=== PATIENT | female | born 1985 | race Caucasian/White ===

== ENCOUNTER → 2023-02-19 06:59 | Outpatient (CLI) | payer BC, SELFPAY ==
[2023-02-19 16:40] LABS: Alanine Aminotransferase 22 U/L (12-78); Albumin Level 4.4 g/dl (3.5-5.0); Albumin/Globulin Ratio 1.2 (1.1-1.8); Alkaline Phosphatase 146 U/L (38-126); Anion Gap 15.8 mEq/L (5-15); Aspartate Amino Transferase 31 U/L (14-36); Bilirubin,Total 0.4 mg/dl (0.2-1.3); Blood Urea Nitrogen 7 mg/dl (7-17); Calcium 9.3 mg/dl (8.4-10.2); Carbon Dioxide 27 mmol/L (22.0-30.0); Chloride 101 mmol/L (98-107); Chol/HDL Ratio 4.2 (1-3.5); Cholesterol 220 mg/dl (140-200); Estimated Glomerular Filt Rate 93 ml/min (>60); GFR (African American) 113 ML/MIN (>60); Globulin 3.7 g/dL (1.3-3.2); Glucose 81 mg/dl (74-100); HDL Cholesterol 53 mg/dl (40-60); Potassium 4.8 mmoL/L (3.5-5.1); Sodium 139 mmol/L (136-145); Total Protein,Serum 8.1 g/dl (6.3-8.2); Triglycerides 109 mg/dl (30-150); VLDL Cholesterol 22 mg/dL (0-40)
[2023-02-19 16:43] LABS: Basophils # 0.1 K/mm3 (0-0.2); Basophils % 0.7 % (0.1-2.0); Eosinophils # 0.3 K/mm3 (0.0-0.4); Eosinophils % 2.6 % (0.1-12.0); Hematocrit 45.2 % (37.0-47.0); Hemoglobin 14.2 g/dL (12.2-16.2); Lymphocytes # 2.3 K/mm3 (0.7-4.5); Mean Corpuscular HGB Conc 31.5 g/dL (31.8-35.4); Mean Corpuscular Hemoglobin 28.9 pg (27.0-31.2); Mean Corpuscular Volume 91.9 fl (81-99); Mean Platelet Volume 9.9 fl (7.4-10.4); Monocytes # 0.7 K/mm3 (0.1-1.0); Monocytes % 6.5 % (1.7-9.3); Neutrophils % 68.3 % (37.0-80.0); Platelet Count 235 K/mm3 (142-424); Red Blood Count 4.91 M/mm3 (4.20-5.40); White Blood Count 10.3 K/mm3 (4.8-10.8)
[2023-02-19 17:08] LABS: Hemoglobin A1C 5.5 % (4.0-6.0)
[2023-02-19 17:11] LABS: Thyroid Stimulating Hormone 2.15 uIU/mL (0.465-4.68)
== END ==
PROVIDERS: PCP Nurse Practitioner Family; Visit Provider Nurse Practitioner Family
DX: Z00.00 Encounter for general adult medical examination without abnormal findings (principal); Z79.899 Other long term (current) drug therapy
CPT/HCPCS: 80053; 80061; 83036; 84443; 85025

== ENCOUNTER 2023-06-23 13:31 | Outpatient (CLI) | payer BC, SELFPAY ==
--- NOTE | 2023-06-23 13:31 | MM_ITS ---
PROCEDURE INFORMATION: Exam: US Right Breast, Complete MG Bilateral Diagnostic Breast Tomosynthesis Exam date and time: 06/23/2023 1:19 PM Age: 38 years old Clinical indication: Due for baseline screening mammogram. Patient reports a right breast palpable lump; Mass, lump, or swelling; Prior surgery; Surgery date: 6+ months; Surgery type: Implants; Additional info: Lump in right breast TECHNIQUE: Imaging protocol: Complete ultrasound of all four quadrants of the right breast and the retroareolar regions, including ultrasound of the axilla when performed. Bilateral Diagnostic tomosynthesis and 2D mammography including computer-aided detection (CAD) when performed. Unilateral or bilateral exam. COMPARISON: No relevant prior studies available. FINDINGS: MAMMOGRAPHY: The breast is heterogeneously dense, which may obscure small masses. Subpectoral saline augmentation implants are present. No mass, architectural distortion, or suspicious calcifications have developed to suggest malignancy. No axillary adenopathy. ULTRASOUND: Ultrasound assessment all 4 quadrants and retroareolar right breast as well as right axilla Morphologically similar appearing heterogeneously hypoechoic masses demonstrate horizontal orientation without posterior shadowing . These may reflect benign fibroadenoma or complicated cysts as follows: 0.7 x 0.8 x 0.3 cm 10 o'clock right breast 4 cm from the nipple (palpable) 0.4 x 0.3 x 0.4 cm right 11 o'clock 3 cm from the nipple 1.1 x 1.0 x 0.4 cm right 10 o'clock 2 cm from the nipple 0.8 x 0.4 x 0.8 cm 3 o'clock periareolar right No dominant or morphologically suspicious mass No architectural distortion or shadowing IMPRESSION: Ultrasound-guided biopsy is recommended to definitively characterize a 0.8 cm right 10 o'clock palpable breast mass There are a total of 4 (including the palpable mass) morphologically similar appearing heterogeneously hypoechoic masses throughout the right breast. These demonstrate features suggestive of benign fibroadenoma or complicated cyst. As a precaution, six-month follow-up targeted ultrasound surveillance is warranted to assure stability presuming negative biopsy of the palpable mass ASSESSMENT: BI-RADS category 4: Suspicious
== END 2023-06-23 23:59 ==
LOC: RAD 13:31
PROVIDERS: PCP Nurse Practitioner Family; Visit Provider Nurse Practitioner Family
DX: N63.10 Unspecified lump in the right breast, unspecified quadrant (principal); Z12.31 Encounter for screening mammogram for malignant neoplasm of breast
CPT/HCPCS: 76641; 77062; 77066; G0279

== ENCOUNTER 2023-06-30 08:56 | Outpatient (CLI) | payer BC, SELFPAY ==
--- NOTE | 2023-06-30 08:57 | US_ITS ---
FINAL REPORT CLINICAL HISTORY: rt breast nodule 1000 4 cmfn -- DR. LARA GARCIA FINDINGS: ULTRASOUND-GUIDED RIGHT BREAST CORE BIOPSY TECHNIQUE: Limited images were obtained to localize region of interest. The right breast was prepped in a routine sterile fashion and locally anesthetized with 1% lidocaine. Standard written informed consent was obtained. An 11-gauge vacuum assisted hand-held device was initially planned for biopsy. The needle was positioned posterior to the lesion. However there was equipment malfunction after positioning the needle appropriately. The biopsy apparatus would not activate. Different biopsy needles were then utilized. An 18-gauge bio [place] needle was in positioned along the lateral periphery of the nodule. 4 separate core samples were obtained. A separate 18-gauge core needle with plunger was utilized. 2 separate core samples were obtained with this needle. A biopsy marker clip was deployed within the right lateral periphery of the lesion.. Postbiopsy mammogram showed postbiopsy changes with clip in the upper outer quadrant. The lesion was not evident mammographically on pre-biopsy imaging. Procedure was well tolerated . CONCLUSION: 1. Technically successful ultrasound guided core biopsy of right breast lesion as above. 2. Biopsy marker clip deployed Authenticated and ERN
--- NOTE | 2023-06-30 09:02 | MM_ITS ---
FINAL REPORT CLINICAL HISTORY: post bx, right breast biopsy FINDINGS: MAMMOGRAM RIGHT TECHNIQUE: Standard digital 2-D views COMPARISON: Diagnostic mammogram 06/23/2023 DENSITY: There are scattered areas of fibroglandular density FINDINGS: Post biopsy marker clip is noted to be in satisfactory position in the upper outer quadrant near denser glandular tissue.. Lesion was only evident sonographically, not evident on the prebiopsy mammogram. Postbiopsy changes are noted. IMPRESSION: Biopsy marker clip in upper outer quadrant near biopsy site RECOMMENDATION: Pending histopathology evaluation Authenticated and ERN
== END 2023-06-30 23:59 ==
LOC: RAD 08:57
PROVIDERS: PCP Nurse Practitioner Family; Visit Provider Family Medicine
DX: N63.11 Unspecified lump in the right breast, upper outer quadrant (principal)
CPT/HCPCS: 19083; 77065

== ENCOUNTER 2023-11-16 09:28 | Outpatient (CLI) | payer BC, SELFPAY ==
[2023-11-16 16:31] LABS: Basophils # 0.1 K/mm3 (0-0.2); Basophils % 0.8 % (0.1-2.0); Eosinophils # 0.3 K/mm3 (0.0-0.4); Eosinophils % 3.6 % (0.1-12.0); Hematocrit 41.8 % (37.0-47.0); Hemoglobin 13.8 g/dL (12.2-16.2); Lymphocytes # 2.5 K/mm3 (0.7-4.5); Lymphocytes % 31.9 % (10-50); Mean Corpuscular HGB Conc 33.1 g/dL (31.8-35.4); Mean Corpuscular Hemoglobin 30.2 pg (27.0-31.2); Mean Corpuscular Volume 91.4 fl (81-99); Mean Platelet Volume 10.1 fl (7.4-10.4); Monocytes # 0.5 K/mm3 (0.1-1.0); Monocytes % 6.1 % (1.7-9.3); Neutrophils # 4.5 K/mm3 (1.8-7.8); Neutrophils % 57.6 % (37.0-80.0); Platelet Count 227 K/mm3 (142-424); Red Blood Count 4.57 M/mm3 (4.20-5.40); Red Cell Distribution Width 14.4 % (11.5-17.5); White Blood Count 7.8 K/mm3 (4.8-10.8)
[2023-11-16 17:02] LABS: Hemoglobin A1C 5.6 % (4.0-6.0)
[2023-11-16 17:24] LABS: Chloride 106 mmol/L (98-107)
[2023-11-16 17:25] LABS: Sodium 136 mmol/L (136-145)
[2023-11-16 17:27] LABS: Alanine Aminotransferase 16 U/L (12-78); Alkaline Phosphatase 98 U/L (38-126); Aspartate Amino Transferase 28 U/L (14-36); Bilirubin,Total 0.5 mg/dl (0.2-1.3); Blood Urea Nitrogen 7 mg/dl (7-17); Estimated Glomerular Filt Rate 79 ml/min (>60); GFR (African American) 96 ML/MIN (>60)
[2023-11-16 17:28] LABS: Albumin Level 4.1 g/dl (3.5-5.0); Albumin/Globulin Ratio 1.4 (1.1-1.8); Calcium 9.5 mg/dl (8.4-10.2); Carbon Dioxide 24 mmol/L (22.0-30.0); Cholesterol 199 mg/dl (140-200); Glucose 94 mg/dl (74-100); Total Protein,Serum 7.1 g/dl (6.3-8.2); Triglycerides 74 mg/dl (30-150); VLDL Cholesterol 15 mg/dL (0-40)
[2023-11-16 17:34] LABS: HDL Cholesterol 50 mg/dl (40-60)
[2023-11-16 17:39] LABS: Direct LDL Cholesterol 118.25 mg/dL (100-129)
== END 2023-11-16 23:59 | disposition home or self-care (01) ==
LOC: LAB.DROPOF 11-17 09:29
PROVIDERS: PCP Nurse Practitioner Family; Visit Provider Nurse Practitioner Family
DX: Z00.00 Encounter for general adult medical examination without abnormal findings (principal); F41.9 Anxiety disorder, unspecified
CPT/HCPCS: 80050; 80053; 80061; 83036; 84443; 85025

== ENCOUNTER 2024-03-06 14:26 | Outpatient (CLI) | payer BC, SELFPAY ==
--- NOTE | 2024-03-06 14:26 | US_ITS ---
PROCEDURE INFORMATION: Exam: US Right Breast, Complete Exam date and time: 03/06/2024 2:49 PM Age: 38 years old Clinical indication: History of ultrasound-guided biopsy 06/30/2023 a 10 o'clock right breast mass for stromal fibrosis. Additional morphologically similar appearing areas throughout the breast were noted on 06/23/2023, for which short-term follow-up was recommended TECHNIQUE: Imaging protocol: Complete ultrasound of all four quadrants of the right breast and the retroareolar regions, including ultrasound of the axilla when performed. COMPARISON: US BIOPSY BREAST RT 06/30/2023 9:08 AM FINDINGS: ULTRASOUND: Breast ultrasound findings: Hypoechoic/anechoic masses with posterior acoustic enhancement throughout the right breast are present as follows: 0.3 cm 5 cm from the nipple 1.3 x 1.1 x 0.3 cm right 10 o'clock 2 cm from the nipple, previously 1.1 x 1.00.4 cm 0.6 x 0.3 x 0.6 cm right 10 o'clock 4 cm from the nipple (previously 0 point 8 x 0 point 3 x 0.7 cm 0.9 x 0.9 x 0.4 cm 3 o'clock retroareolar, previously 0.8 x 0.4 x 0.8 cm No dominant are morphologically suspicious mass No axillary adenopathy IMPRESSION: Probably benign. Six-month follow-up targeted ultrasound is recommended to assess stability of a 3 o'clock retroareolar heterogeneously hypoechoic 0.9 x 0.9 x 0.4 cm mass which measured 0.8 x 0.8 x 0.4 cm 06/23/2023 ASSESSMENT: BI-RADS category 3: Probably benign
== END 2024-03-06 23:59 | disposition home or self-care (01) ==
LOC: RAD 14:26
PROVIDERS: PCP Nurse Practitioner Family; Visit Provider Nurse Practitioner Family
DX: R92.8 Other abnormal and inconclusive findings on diagnostic imaging of breast (principal)
CPT/HCPCS: 76641

== ENCOUNTER 2024-10-19 08:22 | Outpatient (CLI) | payer BC, SELFPAY ==
[2024-10-19 16:52] LABS: Basophils # 0.1 K/mm3 (0-0.2); Basophils % 0.8 % (0.1-2.0); Eosinophils # 0.2 Kmm3 (0.0-0.4); Eosinophils % 2.4 % (0.1-12.0); Hematocrit 40.3 % (37.0-47.0); Hemoglobin 13.3 g/dL (12.2-16.2); Immature Granulocytes # 0.02 10^3uL; Immature Granulocytes % 0.3 %; Lymphocytes # 1.8 K/mm3 (0.7-4.5); Lymphocytes % 28.1 % (10-50); Mean Corpuscular Hemoglobin 30.1 pg (27.0-31.2); Mean Corpuscular Volume 91.2 fl (81-99); Mean Platelet Volume 11.4 fl (7.4-10.4); Monocytes # 0.6 K/mm3 (0.1-1.0); Monocytes % 9.7 % (1.7-9.3); Neutrophils # 3.7 K/mm3 (1.8-7.8); Neutrophils % 58.7 % (37.0-80.0); Nucleated Red Blood Cells # 0 10^3/uL; Nucleated Red Blood Cells % 0 %; Platelet Count 162 K/mm3 (142-424); Red Blood Count 4.42 M/mm3 (4.20-5.40); Red Cell Distribution Width 13.2 % (11.5-17.5); Red Cell Distribution Width-SD 43.8 fL; White Blood Count 6.4 K/mm3 (4.8-10.8)
[2024-10-19 17:04] LABS: Alanine Aminotransferase 17 U/L (12-78); Albumin Level 4.5 g/dl (3.5-5.0); Albumin/Globulin Ratio 1.7 (1.1-1.8); Alkaline Phosphatase 93 U/L (38-126); Anion Gap 11.7 mEq/L (5-15); Aspartate Amino Transferase 26 U/L (14-36); Bilirubin,Total 0.5 mg/dl (0.2-1.3); Blood Urea Nitrogen 10 mg/dl (7-17); Calcium 9.2 mg/dl (8.4-10.2); Carbon Dioxide 26 mmol/L (22.0-30.0); Chloride 105 mmol/L (98-107); Chol/HDL Ratio 4.1 (1-3.5); Cholesterol 174 mg/dl (140-200); Estimated Glomerular Filt Rate 92 ml/min (>60); GFR (African American) 112 ML/MIN (>60); Globulin 2.7 g/dL (1.3-3.2); Glucose 86 mg/dl (74-100); HDL Cholesterol 42 mg/dl (40-60); Potassium 4.7 mmoL/L (3.5-5.1); Sodium 138 mmol/L (136-145); Total Protein,Serum 7.2 g/dl (6.3-8.2); Triglycerides 68 mg/dl (30-150); VLDL Cholesterol 14 mg/dL (0-40)
[2024-10-19 17:15] LABS: Direct LDL Cholesterol 113.82 mg/dL (100-129)
[2024-10-19 17:32] LABS: Thyroid Stimulating Hormone 2.77 uIU/mL (0.465-4.68)
[2024-10-19 17:42] LABS: HIV Combo NEGATIVE (Negative)
[2024-10-19 17:53] LABS: T4 (Thyroxine) 9.1 ug/dl (5.53-11.0)
[2024-10-19 18:24] LABS: Hepatitis C Ab Qual. W/ RFX NEGATIVE (Negative)
[2024-10-19 19:44] LABS: Hemoglobin A1C 5.6 % (4.0-6.0)
== END 2024-10-19 23:59 | disposition home or self-care (01) ==
LOC: LAB.DROPOF 10-20 11:18
PROVIDERS: PCP Nurse Practitioner Family; Visit Provider Nurse Practitioner Family
DX: Z00.00 Encounter for general adult medical examination without abnormal findings (principal); Z11.4 Encounter for screening for human immunodeficiency virus [HIV]; Z11.59 Encounter for screening for other viral diseases
CPT/HCPCS: 80053; 80061; 83036; 84436; 84443; 85025; 86803; 87389

== ENCOUNTER 2024-10-24 17:32 | Outpatient (CLI) | payer BC, SELFPAY ==
[2024-10-24 17:18] LABS: Basophils # 0.1 K/mm3 (0-0.2); Basophils % 0.7 % (0.1-2.0); Eosinophils # 0.2 Kmm3 (0.0-0.4); Eosinophils % 2.4 % (0.1-12.0); Hematocrit 40.7 % (37.0-47.0); Hemoglobin 13.4 g/dL (12.2-16.2); Immature Granulocytes # 0.03 10^3uL; Immature Granulocytes % 0.4 %; Lymphocytes # 1.7 K/mm3 (0.7-4.5); Lymphocytes % 23.5 % (10-50); Mean Corpuscular HGB Conc 32.9 g/dL (31.8-35.4); Mean Corpuscular Hemoglobin 29.8 pg (27.0-31.2); Mean Corpuscular Volume 90.6 fl (81-99); Mean Platelet Volume 10.6 fl (7.4-10.4); Monocytes # 0.6 K/mm3 (0.1-1.0); Monocytes % 7.6 % (1.7-9.3); Neutrophils # 4.7 K/mm3 (1.8-7.8); Neutrophils % 65.4 % (37.0-80.0); Nucleated Red Blood Cells # 0 10^3/uL; Nucleated Red Blood Cells % 0 %; Platelet Count 155 K/mm3 (142-424); Red Blood Count 4.49 M/mm3 (4.20-5.40); Red Cell Distribution Width-SD 43.3 fL; White Blood Count 7.2 K/mm3 (4.8-10.8)
[2024-10-24 17:59] LABS: Erythrocyte Sedimentation Rate 11 mm/hr (0-20)
[2024-10-24 18:02] LABS: Uric Acid 4.6 mg/dl (2.5-6.2)
[2024-10-26 08:21] LABS: RA Latex Turbid. <10.0 IU/mL (<14.0)
[2024-10-27 14:13] LABS: Antinuclear Antibodies, IFA Positive (.)
== END 2024-10-24 23:59 | disposition home or self-care (01) ==
LOC: LAB.DROPOF 17:32
PROVIDERS: PCP Family Medicine; Visit Provider Family Medicine
DX: Z82.61 Family history of arthritis (principal); M25.50 Pain in unspecified joint
CPT/HCPCS: 84550; 85025; 85651; 86038; 86431